=== PATIENT | female | born 1955 ===

== ENCOUNTER 2017-05-22 13:45 | Emergency (ER) | payer OTHER ==
[2017-05-22 14:06] VITALS: BMI 24.5
[2017-05-22 14:08] VITALS: BP 123/79; PULSE 81; RESP 20; TEMP 98.1; O2SAT 100
--- NOTE | 2017-05-22 14:53 | C.PDOC ---
History Of Present Illness 62 year old female who presents to the ER with a complaint of right sided lower back pain radiating down her right leg for the past 2 weeks. Patient states she saw her PMD who gave her Rx for muscles relaxers; however, her pain has not improved. Denies weakness, numbness, dysuria, hematuria, or incontinence. Time Seen by Provider: 05/22/17 14:20 Chief Complaint (Nursing): Back Pain History Per: Patient History/Exam Limitations: no limitations Onset/Duration Of Symptoms: Days Current Symptoms Are (Timing): Still Present Quality Of Discomfort: Unable To Describe Previous Symptoms: None Associated Symptoms: None Recent travel outside of the [place]: No Past Medical History Reviewed: Historical Data, Nursing Documentation, Vital Signs Vital Signs: Last Vital Signs Temp 98.1 F 05/22/17 14:06 Pulse 81 05/22/17 14:06 Resp 20 05/22/17 14:06 BP 123/79 05/22/17 14:06 Pulse Ox 100 05/22/17 15:07 - Medical History PMH: HTN Surgical History: No Surg Hx Family History: States: Unknown Family Hx - Social History Hx Alcohol Use: No Hx Substance Use: No - Immunization History Hx Tetanus Toxoid Vaccination: No Hx Influenza Vaccination: No Hx Pneumococcal Vaccination: No Review Of Systems Genitourinary: Negative for: Dysuria, Incontinence, Hematuria Musculoskeletal: Positive for: Back Pain, Leg Pain Neurological: Negative for: Weakness, Numbness Physical Exam - Physical Exam Appears: Non-toxic Skin: Normal Color, Warm, Dry Head: Atraumatic, Normacephalic Oral Mucosa: Moist Back: Other (Right sciatic notch tenderness) Neurological/Psych: Oriented x3, Normal Speech, Normal Cognition, Normal Motor, Normal Sensation Gait: Steady ED Course And Treatment O2 Sat by Pulse Oximetry: 100 (Room air) Pulse Ox Interpretation: Normal Medical Decision Making Medical Decision Making: Plan: Flexeril Motrin 327 pm pt feeling much better, ready to go home Disposition Counseled Patient/Family Regarding: Diagnosis, Need For Followup, Rx Given - Disposition Referrals: Denita Donnelly MD [Medical Doctor] - Disposition: HOME/ ROUTINE Disposition Time: 15:28 Condition: IMPROVED Additional Instructions: Follow up with your doctor in 1-2 days. Recommend you get a referral for physical therapy. Take medications as prescribed. Continue with cold compresses to painful area several times a day. Return to ER for any worse problems. Prescriptions: Acetaminophen [Tylenol 325mg tab] 650 mg PO Q6 #50 tab Cyclobenzaprine [Cyclobenzaprine HCl] 10 mg PO Q8 #9 tab Instructions: Sciatica (ED) Forms: Gen Discharge Inst Ukrainian, [facility] (Ukrainian) - Clinical Impression Clinical Impression: Sciatica - Scribe Statement The provider has reviewed the documentation as recorded by the Scribsohail Gilman All medical record entries made by the Andrewibsohail were at my direction and personally dictated by me. I have reviewed the chart and agree that the record accurately reflects my personal performance of the history, physical exam, medical decision making, and the department course for this patient. I have also personally directed, reviewed, and agree with the discharge instructions and disposition.
== END 2017-05-22 15:42 | disposition home or self-care (01) ==
LOC: C.ER 13:45
DX: M54.41 Lumbago with sciatica, right side (principal)